=== PATIENT | male | born 2000 ===

== ENCOUNTER 2019-09-10 15:56 | Emergency (ER) | payer BC ==
[2019-09-10] MEDS ORDERED: Aspirin 325 MG Tab.EC PO ONE (16:10)
[2019-09-10] MEDS ORDERED: Diltiazem 25 MG/5 ML SDV IVPUSH ONE (16:10)
[2019-09-10] MEDS ORDERED: Sodium Chloride 0.9% 1,000 ML IV ONE (16:12)
[2019-09-10] MEDS ORDERED: Aspirin 81 MG Tab.Chew PO ONE (16:20)
[2019-09-10] MEDS: LORazepam 2 MG/ML SDV IVPUSH ONE ×2 (16:27→16:30)
--- NOTE | 2019-09-10 16:30 | CR ---
Chest: Portable view of the chest was obtained. Comparison: No previous chest imaging is available. Heart size and mediastinum are normal. Lungs are clear with no acute parenchymal change. Bony structures appear within normal limits. Impression: 1. Nothing acute is appreciated on portable chest x-ray. Diagnostic code #1 Study was dictated in MDT
[2019-09-10 16:38] LABS: BLOOD UREA NITROGEN,BUN 10 mg/dL (7.0-18.0); CARBON DIOXIDE,CO2 24.8 mmol/L (21.0-32.0); CHLORIDE,CL 105 mmol/L (98-107); GLUCOSE RANDOM 118 mg/dL (74-106); SODIUM,NA 143 mmol/L (136-148)
--- NOTE | 2019-09-10 18:56 | EDM.PDOC ---
ED HPI GENERAL MEDICAL PROBLEM - General Chief Complaint: Chest Pain Stated Complaint: CHEST PAIN Time Seen by Provider: 09/10/19 15:58 Source of Information: Reports: Patient History Limitations: Reports: No Limitations - History of Present Illness INITIAL COMMENTS - FREE TEXT/NARRATIVE: This Is a 18-year-old male who presents to the emergency room with a chief complaint of rapid heart rate and anxiety. Patient has recently stopped taking his medication for anxiety and now feels his heart pounding. Denies any illicit drug use Onset: Today Duration: Hour(s): Location: Reports: Chest Severity: Mild Worsens with: Reports: None Associated Symptoms: Reports: No Other Symptoms Middle chest Pain Score (Numeric/FACES): 5 - Related Data Allergies Allergy/AdvReac Type Severity Reaction Status Date / Time No Known Allergies Allergy Verified 09/10/19 16:02 Home Meds: Home Meds . [Unable to Verify Home Med List] 09/10/19 [History] Past Medical History Psychiatric History: Reports: Anxiety Social & Family History - Tobacco Use Smoking Status *Q: Current Every Day Smoker Years of Tobacco use: 0 Packs/Tins Daily: 0 - Caffeine Use Caffeine Use: Reports: Energy Drinks, Soda, Tea - Recreational Drug Use Recreational Drug Use: No ED ROS GENERAL - Review of Systems Review Of Systems: See Below Constitutional: Reports: No Symptoms, Weakness HEENT: Reports: No Symptoms Respiratory: Reports: No Symptoms, Pleuritic Chest Pain Cardiovascular: Reports: Chest Pain Endocrine: Reports: No Symptoms GI/Abdominal: Reports: No Symptoms : Reports: No Symptoms Musculoskeletal: Reports: No Symptoms Skin: Reports: No Symptoms Neurological: Reports: No Symptoms Psychiatric: Reports: No Symptoms Hematologic/Lymphatic: Reports: No Symptoms Immunologic: Reports: No Symptoms ED EXAM, GENERAL - Physical Exam Exam: See Below Exam Limited By: No Limitations General Appearance: Alert, WD/WN, No Apparent Distress Eye Exam: Bilateral Eye: Normal Fundi, Normal Inspection Ears: Normal External Exam, Normal Canal, Hearing Grossly Normal, Normal TMs Ear Exam: Bilateral Ear: Auricle Normal, Canal Normal Nose: Normal Inspection, Normal Mucosa Throat/Mouth: Normal Inspection, Normal Lips, Normal Teeth Head: Atraumatic, Normocephalic Neck: Normal Inspection, Supple, Non-Tender Respiratory/Chest: No Respiratory Distress, Lungs Clear, Normal Breath Sounds Cardiovascular: Normal Peripheral Pulses, Regular Rate, Rhythm, No Edema, No JVD , No Murmur, No Rub GI/Abdominal: Normal Bowel Sounds, Non-Tender, No Organomegaly, No Distention, No Abnormal Bruit (Male) Exam: Deferred Rectal (Males) Exam: Deferred Back Exam: Normal Inspection, Full Range of Motion Extremities: Normal Inspection, Normal Range of Motion, Non-Tender, No Pedal Edema, Normal Capillary Refill Psychiatric: Normal Affect, Normal Mood Skin Exam: Warm, Dry, Intact, Normal Color Lymphatic: No Adenopathy EKG INTERPRETATION EKG Interpretation Comments: sinus Tachycardia. Fluids and Ativan patient's heart rate has significantly improved. Course - Vital Signs Text/Narrative:: Presents to the emergency room chief complaint of rapid heart rate and feeling anxious. Dates that he stopped taking his Prozac on his own. Patient had a heart rate of 139 sinus tachycardia. With IV fluids and 2 of Ativan. His blood pressure remained normal his heart rate is now 102. Patient feels much better. Patient instructed to get back on his Prozac. Patient will be discharged home to follow-up with his primary care physician. Second EKG shows a heart rate of 102 sinus tachycardia much improved. Last Recorded V/S: Last Vital Signs Temp 98.0 F 09/10/19 16:02 Pulse 111 H 09/10/19 16:31 Resp 16 09/10/19 16:31 BP 153/92 H 09/10/19 16:31 Pulse Ox 98 09/10/19 16:31 - Orders/Labs/Meds Orders: Active Orders 24 hr Category Date Time Status EKG 12 Lead [EKG Documentation Completion] [RC] STAT Care 09/10/19 18:55 Active EKG Documentation Completion [RC] STAT Care 09/10/19 16:19 Active Labs: Laboratory Tests 09/10/19 09/10/19 09/10/19 Range/Units 16:04 16:04 18:03 WBC 7.58 (4.0-11.0) K/uL RBC 5.24 (4.50-5.90) M/uL Hgb 15.8 (13.0-17.0) g/dL Hct 45.4 (38.0-50.0) % MCV 86.6 (80.0-98.0) fL MCH 30.2 (27.0-32.0) pg MCHC 34.8 (31.0-37.0) g/dL RDW Std Deviation 42.5 (28.0-62.0) fl RDW Coeff of John Paul 13 (11.0-15.0) % Plt Count 223 (150-400) K/uL MPV 11.70 (7.40-12.00) fL Neut % (Auto) 54.9 (48.0-80.0) % Lymph % (Auto) 34.4 (16.0-40.0) % [place] % (Auto) 7.7 (0.0-15.0) % Eos % (Auto) 2.5 (0.0-7.0) % Baso % (Auto) 0.5 (0.0-1.5) % Neut # (Auto) 4.2 (1.4-5.7) K/uL Lymph # (Auto) 2.6 H (0.6-2.4) K/uL [place] # (Auto) 0.6 (0.0-0.8) K/uL Eos # (Auto) 0.2 (0.0-0.7) K/uL Baso # (Auto) 0.0 (0.0-0.1) K/uL Nucleated RBC % 0.0 /100WBC Nucleated RBCs # 0 K/uL Sodium 143 (136-148) mmol/L Potassium 3.0 L (3.5-5.1) mmol/L Chloride 105 (98-107) mmol/L Carbon Dioxide 24.8 (21.0-32.0) mmol/L BUN 10 (7.0-18.0) mg/dL Creatinine 1.2 (0.8-1.3) mg/dL Est Cr Clr Drug Dosing 114.17 mL/min Estimated GFR (MDRD) > 60.0 ml/min Glucose 118 H (74-106) mg/dL Calcium 9.6 (8.5-10.1) mg/dL Total Bilirubin 0.6 (0.2-1.0) mg/dL AST 81 H (15-37) IU/L ALT 31 (14-63) IU/L Alkaline Phosphatase 80 (46-116) U/L Total Protein 8.1 (6.4-8.2) g/dL Albumin 4.5 (3.4-5.0) g/dL Globulin 3.6 (2.6-4.0) g/dL Albumin/Globulin Ratio 1.2 (0.9-1.6) Urine Opiates Screen NEGATIVE (NEGATIVE) Ur Oxycodone Screen NEGATIVE (NEGATIVE) Urine Methadone Screen NEGATIVE (NEGATIVE) Ur Barbiturates Screen NEGATIVE (NEGATIVE) Ur Phencyclidine Scrn NEGATIVE (NEGATIVE) Ur Amphetamine Screen NEGATIVE (NEGATIVE) U Methamphetamines Scrn NEGATIVE (NEGATIVE) U Benzodiazepines Scrn NEGATIVE (NEGATIVE) U Cocaine Metab Screen NEGATIVE (NEGATIVE) U Marijuana (THC) Screen NEGATIVE (NEGATIVE) Meds: Medications Discontinued Medications Generic Name Dose Route Start Last Admin Trade Name Freq PRN Reason Stop Dose Admin Aspirin 325 mg 09/10/19 16:10 09/10/19 16:25 Ecotrin PO 09/10/19 16:11 Not Given ONETIME ONE Aspirin 324 mg 09/10/19 16:20 09/10/19 16:25 Aspirin PO 09/10/19 16:21 324 mg ONETIME ONE Administration Sodium Chloride 1,000 mls @ 1,000 mls/hr 09/10/19 16:12 09/10/19 16:25 Normal Saline IV 09/10/19 17:11 1,000 mls/hr .Bolus ONE Administration Lorazepam 2 mg 09/10/19 16:13 09/10/19 16:30 Ativan IVPUSH 09/10/19 16:14 2 mg ONETIME ONE Administration Departure - Departure Time of Disposition: 19:18 Disposition: Home, Self-Care 01 Condition: Good Clinical Impression: Medication reaction Referrals: PCP,None [Primary Care Provider] - Forms: ED Department Discharge Additional Instructions: . Patient is to continue his medication as prescribed. Patient to consult his MD anytime he wants to abruptly change his medication. Patient return for any problems Sepsis Event Note - Evaluation Sepsis Screening Result: No Definite Risk - Focused Exam Vital Signs: Vital Signs Temp Pulse Resp BP Pulse Ox 09/10/19 16:31 111 H 16 153/92 H 98 09/10/19 16:02 98.0 F 99 16 167/101 H 98 Date Exam was Performed: 09/10/19 Time Exam was Performed: 19:16 - My Orders Last 24 Hours: My Active Orders 09/10/19 16:19 EKG Documentation Completion [RC] STAT 09/10/19 18:55 EKG 12 Lead [EKG Documentation Completion] [RC] STAT - Assessment/Plan Last 24 Hours: My Active Orders 09/10/19 16:19 EKG Documentation Completion [RC] STAT 09/10/19 18:55 EKG 12 Lead [EKG Documentation Completion] [RC] STAT
== END 2019-09-10 19:30 | disposition home or self-care (01) ==
LOC: MW.ED 15:56
DX: R00.0 Tachycardia, unspecified (principal); T43.225A Adverse effect of selective serotonin reuptake inhibitors, initial encounter; F41.9 Anxiety disorder, unspecified; F17.210 Nicotine dependence, cigarettes, uncomplicated
CPT/HCPCS: 36415; 71045; 80053; 80305; 85025; 93005; 96361; 96374; 99285; A9270; J2060; J7030; 99284